=== PATIENT | male | born 1985 | race Caucasian/White ===

== ENCOUNTER 2021-11-10 11:48 | Day surgery (SDC) | payer OTHER, SELFPAY ==
--- NOTE | 2021-11-09 11:07 | HO.ANESPROP2 ---
Documented by User: Yusra Thomason NP 11/09/21 11:08 HPI - Anesthesia Eval Consult details Narrative: 36yo M for Colonoscopy [facility] Past Medical History Medical History (Updated 11/09/21 @ 09:53 by Vimal Rodríguez RN) Asthma Family History Family History (Updated 11/09/21 @ 09:54 by Vimal Rodríguez RN) Father Colon polyps Colon cancer Mother Hypertension Surgical History Surgical History (Updated 11/09/21 @ 09:53 by Vimal Rodríguez RN) No pertinent past surgical history Social History Social History (Updated 11/09/21 @ 09:55 by Vimal Rodríguez RN) Patient Tobacco Use Status: Never used Tobacco Use of substances other than those prescribed or required for medical reasons: No Are you DNR?: No Advance Directives: No Advance Directives Information Provided: Yes Recently lost weight without trying: No service: No Current occupational status: 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 Allergy/AdvReac Type Severity Reaction Status Date / Time From BENADRYL Allergy Unknown STAYS AWAKE Uncoded 05/07/20 17:40 Exam Exam Date and Time: November 09, 2021 1107 Assessment and Plan Assessment Anesthesia Assessment: Chart Reviewed Documented by User: Shawna Walden MD 11/10/21 12:38 [facility] Past Medical History Medical History (Updated 11/09/21 @ 09:53 by Vimal Rodríguez RN) Asthma Family History Family History (Updated 11/09/21 @ 09:54 by Vimal Rodríguez RN) Father Colon polyps Colon cancer Mother Hypertension Family history of problems with anesthesia: No Surgical History Surgical History (Updated 11/09/21 @ 09:53 by Vimal Rodríguez, CLARICE) No pertinent past surgical history History of Problems with Anesthesia: No Social History Social History (Updated 11/09/21 @ 09:55 by Vimal Rodríguez RN) Patient Tobacco Use Status: Never used Tobacco Use of substances other than those prescribed or required for medical reasons: No Are you DNR?: No Advance Directives: No Advance Directives Information Provided: Yes Recently lost weight without trying: No service: No Current occupational status: 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 Allergy/AdvReac Type Severity Reaction Status Date / Time From BENADRYL Allergy Unknown STAYS AWAKE Uncoded 05/07/20 17:40 Exam Airway Mallampati Class: II TM Dist: >3cm Neck ROM: Full Heart: rrr Lungs: cta Assessment and Plan Assessment Anesthesia Assessment: Anesthesia Plan Discussed and Chart Reviewed Final Anesthetic Review Family History of Problems with Anesthesia: No History of Problems with Anesthesia: No NPO: Yes ASA Class: II Final Preanesthetic Review: No Changes in Pt Med Stat, Meds/Allgs Chart Reviewed and Consent Obtained/Reviewed Patient Risk: Intermediate Procedure Risk: Intermediate Anesthetic Plan Anesthetic Plan: MAC: Disposition: Standard PACU
[2021-11-10 11:57] VITALS: BMI 23.3
[2021-11-10 12:01] VITALS: BP 116/72; PULSE 81; RESP 18; TEMP 36.8; O2SAT 98
[2021-11-10] MEDS: Lactated Ringers 1,000 ML 100 ML IVCONT (12:18)
--- NOTE | 2021-11-10 12:57 | MHC.SHP ---
Pre-Procedural Eval Section A Date of Service: 11/10/21 The patient is an INPATIENT: No Changes since office visit: No Cold of Flu in the past 2 weeks, No New Medical Problems, No Changes in Medication and No Patient answered all questions The History & Physical has been completed within 30 days and I have reviewed it.: Yes Section B Chief Complaint: Hemorrhage of anus and rectum Allergies: Allergies Allergy/AdvReac Type Severity Reaction Status Date / Time From BENADRYL Allergy Unknown STAYS AWAKE Uncoded 05/07/20 17:40 Plan I have reviewed the history and physical and performed a pertinent physical examination on my patient. No changes have occurred unless specified.
[2021-11-10 13:25] VITALS: BP 91/49; PULSE 71; RESP 16; TEMP 36.2; O2SAT 98
--- NOTE | 2021-11-10 13:25 | PM.OP ---
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
[2021-11-10 13:30] VITALS: BP 92/47; PULSE 67; RESP 16; O2SAT 98
[2021-11-10 13:35] VITALS: BP 95/48; PULSE 65; RESP 16; O2SAT 97
[2021-11-10 13:40] VITALS: BP 93/49; PULSE 64; RESP 18; TEMP 36.1; O2SAT 96
[2021-11-10 13:55] VITALS: BP 97/62; PULSE 65; RESP 16; O2SAT 99
--- NOTE | 2021-11-10 14:07 | OP_ITS ---
SURGEON: Kolby De Leon MD INDICATIONS: Rectal bleeding. PREOPERATIVE DIAGNOSIS: POSTOPERATIVE DIAGNOSIS: PROCEDURE PERFORMED: Colonoscopy to the terminal ileum with biopsy. ESTIMATED BLOOD LOSS: COMPLICATIONS: ANESTHESIA: ASSISTANTS: SPECIMENS: MEDICATIONS: Monitored anesthesia care. DESCRIPTION OF PROCEDURE: History and physical were performed. The risks and benefits of the procedure were explained to the patient. Informed consent was obtained. The patient was placed in the left lateral decubitus position. A digital rectal exam was performed and was found to be normal. The Olympus pediatric video colonoscope was introduced into the rectum and advanced to the cecum without difficulty. The cecum was identified by transillumination, palpation, and identification of ileocecal valve. Examination was performed and the scope was removed. He tolerated the procedure well and was taken to recovery area in stable condition. FINDINGS: The terminal ileum was explored for 30 cm and appeared normal. Biopsies were obtained. There was no evidence of Crohn disease. The visualized colonic mucosa was within normal limits without evidence of masses, ulcers, or polyps. The quality of the prep was good. There was no evidence of colitis. Random biopsies were obtained from the right colon and sigmoid. Retroflexed examination showed some hypertrophic anal papillae. There were some small skin tags on the external rectal area, but no significant active hemorrhoidal disease. IMPRESSION: Normal colonoscopy. RECOMMENDATION: Follow up the biopsy results. 5 year colonoscopy recall due to family history. MD ROMY Mcneill/ERENDIRA / [id number] MTDD
== END 2021-11-10 14:52 | disposition home or self-care (01) ==
PROVIDERS: PCP Internal Medicine; Visit Provider Internal Medicine Gastroenterology
PROC: 0DJD8ZZ Inspection of Lower Intestinal Tract, Via Natural or Artificial Opening Endoscopic (ICD-10-PCS; CPT 45378; principal; 2021-11-10 13:00)
DX: K62.5 Hemorrhage of anus and rectum (principal); Z80.0 Family history of malignant neoplasm of digestive organs; Z83.71 Family history of colonic polyps; K62.89 Other specified diseases of anus and rectum; K64.4 Residual hemorrhoidal skin tags; J45.909 Unspecified asthma, uncomplicated; Z88.8 Allergy status to other drugs, medicaments and biological substances
CPT/HCPCS: 45380; 88305

== ENCOUNTER → 2022-02-16 13:57 | Outpatient (BNVA) | payer OTHER, SELFPAY | PROVIDERS: PCP Internal Medicine; Visit Provider Urology | DX: Z30.09 Encounter for other general counseling and advice on contraception (principal); F41.8 Other specified anxiety disorders | CPT/HCPCS: 99202 ==

== ENCOUNTER → 2022-04-28 14:21 | Outpatient (BNVA) | payer OTHER, SELFPAY | PROVIDERS: PCP Internal Medicine; Visit Provider Urology | DX: Z30.2 Encounter for sterilization (principal); F41.8 Other specified anxiety disorders | CPT/HCPCS: 55250 ==

== ENCOUNTER → 2022-08-02 13:14 | Outpatient (BNVA) | payer OTHER, SELFPAY | PROVIDERS: PCP Internal Medicine; Visit Provider Urology | DX: Z98.52 Vasectomy status (principal); F41.8 Other specified anxiety disorders | CPT/HCPCS: 99212 ==

== ENCOUNTER 2023-10-17 14:39 | Outpatient (AMB) | payer OTHER, SELFPAY ==
--- NOTE | 2023-10-17 14:55 | A.OFFVIS_ITS ---
Intake Intake Visit Reasons: follow up/scotal pain Intake Note: Patient is Present for Follow Up Scrotal Pain Urology Medication: none Antibiotic Allergies:None Blood Thinners: None Patient states that he has been having scrotal pain for a few months pain stays in same area does not radiate anwhere else patient states he feels pain when sitting down pain is throbbing. 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 He is a patient of Dr. Chirinos. 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 Review of Systems Const Denies chills and Denies fever(s) Card Reports no additional complaints and Denies syncope Resp Denies cough GI Denies abdominal pain and Denies heartburn Reports as per HPI and Denies change in libido Neuro Denies syncope Psych Denies change in libido Endo Denies change in libido Physical Exam Const General: cooperative, healthy appearing, comfortable and no acute distress Orientation/consciousness: patient oriented x3 HEENT Face and sinus: Yes normal facial exam Mouth: moist mucous membranes Neck Neck: Yes normal visual inspection, Yes full ROM and Yes trachea midline Chest Chest palpation & inspection: normal inspection of the chest Resp Effort & Inspection: normal respiratory effort, able to speak in complete sentences and no respiratory distress GI Inspection: Yes normal to inspection Back/Spine/Pelvis Cervical Spine: normal cervical lordosis Thoracic/Lumbar Spine: thoracic and lumbar spine normal to inspection Skin General skin exam: no rashes or lesions noted Neuro General: patient oriented x3, gait normal, tone normal and moves all extremities Extrem General: Yes normal to inspection and Yes capillary refill normal Assessment & Plan Assessment & Plan (1) Peyronie's disease: Code(s): N48.6 - Induration penis plastica Plan Painful plaque on penis Long-acting anti-inflammatory provided Medications: New piroxicam (Feldene) 10 mg PO DAILY 30 caps 0RF 30 days N48.6 - Induration penis plastica Patient Instructions: Imaging studies, laboratory and physical exam results were discussed and reviewed in detail. No major barriers to patient understanding were identified. An opportunity to ask questions regarding the treatment plan was provided. All questions were answered. The patient expressed understanding and agreement with the above treatment plan. The patient is aware they should contact our office by phone for worsening of their current condition or the appearance of new urologic symptoms. Compliance is encouraged with any medications and followup testing that is ordered. It is a privilege to participate in the urologic care of your patient. If you have any questions or concerns regarding treatment for the above conditions, or other urologic issues, please do not hesitate to contact me. The office telephone contact is [phone]. This note is constructed using voice recognition software. While every effort has been made to ensure accuracy driver education instructor errors may have been included. Yours sincerely, Dr Mumtaz Laura MD, [facility] - Urology Providers of Expert, Compassionate Care for the Genitourinary System Coding Level of Care Code Est Pt Level 4 (00968) Diagnoses Peyronie's disease N48.6
== END 2023-10-17 15:46 | disposition home or self-care (01) ==
PROVIDERS: PCP Internal Medicine; Visit Provider Urology
DX: N48.6 Induration penis plastica (principal)
CPT/HCPCS: 99214

== ENCOUNTER → 2023-10-17 14:39 | Outpatient (BNVA) | payer OTHER, SELFPAY | PROVIDERS: PCP Internal Medicine; Visit Provider Urology ==

== ENCOUNTER 2023-11-15 08:36 | Outpatient (AMB) | payer OTHER, SELFPAY ==
--- NOTE | 2023-11-15 08:37 | A.OFFVIS_ITS ---
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 He is a patient of Dr. Chirinos. He is seen for the following urologic condition - Anxiety about health - Vasectomy - painful scotum - Peyronie's Telemedicine Evaluation 15 min Consultation [employer] Video Follow-up from long-acting anti-inflammatory Still with pain in scrotum Discussed possible injection for scrotal cord Peyronie's Referral for painful scrotum On exam has plaque on penis consistent with Peyronie's disease Minimal deviation PFSH Medical History Asthma Surgical History History of colonoscopy No pertinent past surgical history Family History Father Colon polyps Colon cancer Mother Hypertension Social History Patient Tobacco Use Status: Never used Tobacco service: No 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 occupational status: 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 Review of Systems Const All systems reviewed & are unremarkable except as noted in HPI and below Reports no additional complaints Resp Reports no additional complaints GI Reports no additional complaints Reports as per HPI Musc Reports no additional complaints Physical Exam Telemedicine evaluation Appropriate responses Regular breathing rate and rhythm HEENT Head: Yes normal to inspection Ears: hearing grossly normal bilaterally Eyes General: appearance normal, both eyes and all related structures Neck Neck: Yes normal visual inspection Chest Chest palpation & inspection: normal inspection of the chest Resp Effort & Inspection: normal respiratory effort and able to speak in complete sentences Assessment & Plan Assessment & Plan (1) Peyronie's disease: Code(s): N48.6 - Induration penis plastica (2) Orchalgia: Code(s): N50.819 - Testicular pain, unspecified Plan Recommend testicular cord injection Patient Instructions: Imaging studies, laboratory and physical exam results were discussed and reviewed in detail. No major barriers to patient understanding were identified. An opportunity to ask questions regarding the treatment plan was provided. All questions were answered. The patient expressed understanding and agreement with the above treatment plan. The patient is aware they should contact our office by phone for worsening of their current condition or the appearance of new urologic symptoms. Compliance is encouraged with any medications and followup testing that is ordered. It is a privilege to participate in the urologic care of your patient. If you have any questions or concerns regarding treatment for the above conditions, or other urologic issues, please do not hesitate to contact me. The office telephone contact is [phone]. This note is constructed using voice recognition software. While every effort has been made to ensure accuracy hide grader errors may have been included. Yours sincerely, Dr Mumtaz Laura MD, [facility] - Urology Providers of Expert, Compassionate Care for the Genitourinary System Telehealth Telehealth Location of provider rendering services: practice address Location of patient: address on file Patient Identification confirmed using: Name, : Yes Telehealth method: video Patient verbally consented to treatment: Yes Patient verbally consented to billing insurance company: Yes Patient informed of any privacy concerns related to visit: Yes Coding Level of Care Code Tele Est Pt Level 3 (69944) Diagnoses Peyronie's disease N48.6 Orchalgia N50.819
== END 2023-11-15 09:47 | disposition home or self-care (01) ==
LOC: HO.HUSH 08:36
PROVIDERS: PCP Internal Medicine; Visit Provider Urology
DX: N48.6 Induration penis plastica (principal); N50.819 Testicular pain, unspecified
CPT/HCPCS: 99213

== ENCOUNTER → 2023-11-15 08:36 | Outpatient (BNVA) | payer OTHER, SELFPAY | PROVIDERS: PCP Internal Medicine; Visit Provider Urology ==